=== PATIENT | male | born 1985 | race Caucasian/White ===

== ENCOUNTER 2022-07-29 17:26 | Emergency (ER) | payer OTHER ==
[2022-07-29] MEDS ORDERED: Cyclobenzaprine 10 MG Tab PO ONE (20:56)
== END 2022-07-29 23:20 | disposition home or self-care (01) ==
LOC: JP.ED 17:26
DX: M62.830 Muscle spasm of back (principal); E83.42 Hypomagnesemia; E87.6 Hypokalemia; F17.210 Nicotine dependence, cigarettes, uncomplicated; Z79.899 Other long term (current) drug therapy
CPT/HCPCS: 36415; 70450; 80048; 83735; 99284; A9270